=== PATIENT | male | born 1965 | race Caucasian/White ===

== ENCOUNTER → 2022-07-04 | Outpatient (CLI) | payer MEDICAID, SELFPAY ==
--- NOTE | 2022-07-04 | FLU_PTH ---
PATIENT: GABINO ROCHA LOC: [facility] U#:[id number] AGE/SX: 56/M ROOM: RE07/04/[address]: Dr. Lalit John MD : 1965 BED: DIS: 07/04/2022 SPEC #: [id number] RECD: 07/04/22 11:58 STATUS: ELMO ZEESHAN #: [id number] EDEL: 07/04/22 00:[address]: Lalit John DEPT: CYTOLOGY RECD BY: Henna Lamb ENTERED: 07/04/22 13:28 SP TYPE: Fluid OTHR DR: Dr. Ihsan Joyner MD Tissues: A - Thyroid gland, NOS B - Thyroid gland, NOS C - Thyroid gland, NOS D - Thyroid gland, NOS E - Thyroid gland, NOS Procedures: Special Stain Group II Surgery Specimen Level IV Cytospin Fluid HEADER OPERATION: Fine needle aspiration of right mid and right lower thyroid PRE-OP DIAGNOSIS: Abnormal thyroid ultrasound TISSUE SUBMITTED: A - Right mid thyroid nodule fluid, B - Right mid thyroid nodule x8 slides, C - Right lower thyroid nodule fluid, D - Right lower thyroid nodule x12 slides, E - Right superior thyroid nodule x4 slides DIAGNOSIS CYTOLOGY A. 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 Adequate for evaluation. See comment. B. Right mid thyroid nodule, fine needle aspiration (smears): Atypical follicular cells of undetermined significance, [place] Category III. Adequate for evaluation. See comment. C. Right lower thyroid nodule fluid, fine needle aspiration (cytospin and cell block): Negative for malignant cells. See cytology study and comment. D. 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 Adequate for evaluation. See comment. E. Right superior thyroid nodule, fine needle aspiration (smears): Suggestive of benign colloid nodule. See comment. SJ:rg 07/05/2022 COMMENT E. The specimen entirely consists of colloid. Follicular cells are not seen. Correlation with clinical, radiologic findings and appropriate follow up are necessary. The [place] System for thyroid diagnostic categorization was used in the evaluation of this case. Case has been reviewed in consultation with Dr. Ross who concurs with the above diagnosis. IDC:AM CYTOLOGY STUDY Slides are reviewed. C. A few clusters of benign follicular cells are noted. CYTOLOGY GROSS A - Received is 30 ml of cloudy brown fluid labeled with the patient's name and and designated per the requisition as right mid thyroid. Submitted for cytology preparation including cell block. B - Received are 8 smears labeled with the patient's name and designated per the requisition as right mid thyroid. Submitted for staining. C - Received is 25 ml of cloudy brown fluid labeled with the patient's name and and designated per the requisition as right lower thyroid. Submitted for cytology preparation including cell block. D - Received are 12 smears labeled with the patient's name and designated per the requisition as right lower thyroid. Submitted for staining. E - Received are 4 smears labeled with the patient's name and designated per the requisition as right superior thyroid. Submitted for staining. / rg 07/04/2022 TC:5 CPT: 89337 x5, 17446 x2
== END | disposition home or self-care (01) ==
PROVIDERS: PCP Family Medicine; Referring Provider Surgery; Visit Provider Surgery
DX: E04.1 Nontoxic single thyroid nodule (principal)
CPT/HCPCS: 88108; 88305; 88313

== ENCOUNTER 2022-12-06 11:13 | Emergency (ER) | payer MEDICAID, SELFPAY ==
[2022-12-06 11:14] VITALS: BP 133/95; PULSE 114; RESP 18; TEMP 35.7; O2SAT 98; BMI 26.5
--- NOTE | 2022-12-06 11:49 | EX.ED.DYSGE1 ---
HPI History of Present Illness Chief Complaint: Cough Onset/Context/Timing Onset: Month(s) (1) Timing: Continuous Quality: Hoarse Location: Throat Worsened by: Drink water Relieved by: Nothing Narrative Narrative: Patient presents with a cough that has been constant for the past month since he had thyroid surgery. Patient denies any sputum production. Patient denies any fevers or chills. Patient states his cough is worse with drinking any water. Patient states he has had a persistent hoarse voice. Patient states he contacted his surgeon who told him to come to the emergency department for evaluation. Patient states he is taking codeine cough syrup with no improvement. [facility] Medical History (Updated 12/06/22 @ 15:[address] Oscar Gill DO) Diabetes Home Medications hydrocodone-homatropine 5 mg-1.5 mg/5 mL (5 mL) oral syrup (Hycodan) 5 ml PO Q6H PRN cough 10 days #200 mL 12/06/22 [Rx Last Taken Unknown] Allergy/AdvReac Type Severity Reaction Status Date / Time PENICILLIN Allergy Severe HIVES Uncoded 12/06/22 11:15 Surgical History H/O thyroidectomy Social History Smoking Status: Unknown if ever smoked ROS ROS ED Constitutional Constitutional ED: Denies chills or fever(s) Eyes Eyes: Denies blurry vision or change in vision ENT ENT ED: Reports sore throat; Denies rhinorrhea Cardiovascular Cardiovascular: Reports chest pain; Denies palpitations Respiratory/Chest Respiratory/Chest: Reports cough; Denies dyspnea Gastrointestinal Gastrointestinal: Denies nausea or vomiting Genitourinary Genitourinary ED: Denies dysuria or hematuria Musculoskeletal Musculoskeletal: Denies back pain or neck pain Integumentary Denies abscess or rash Neurologic Neurologic: Denies headache(s) or weakness Allergic/Immunologic Allergic/Immunologic ED: Denies mouth swelling or urticaria EXAM Physical Exam Const Vital Signs: 12/06/22 11:14 12/06/22 11:47 Temperature 96.2 F L Temperature Source Temporal Pulse Rate 114 H Respiratory Rate 18 Respiratory Effort Normal Non-Labored Respiratory Depth Normal Respiratory Pattern Normal Blood Pressure 133/95 H Blood Pressure Mean 107 Pulse Ox 98 Oxygen Delivery Method Room Air Positive well nourished and well developed General Appearance ED: well developed and NAD HEENT Reports moist mucous membranes Neck no lymphadenopathy, supple and no JVD Neck Narrative: There is no erythema or warmth. The incision is healing well. There is no edema. Trachea is midline. There is no tenderness noted. Resp normal respiratory effort and clear to auscultation bilaterally Cardio regular rate, regular rhythm and no murmurs GI normal to inspection, nondistended, normoactive bowel sounds and non-tender Palpation: soft Extremity normal to inspection General Extremety ED: Negative for edema or tenderness General Extremity: Negative for edema Neuro oriented x3, CN's II-XII intact bilaterally and no sensory deficits noted Sensorium / Orientation: alert Motor Exam: strength 5/5 throughout Psych mental status grossly normal Skin no rashes or lesions noted MDM MDM MDM Narrative Medical decision making narrative: Differential diagnosis includes postoperative abscess, seroma, infection, mass, and swelling. CBC will be obtained to assess for leukocytosis and anemia. Basic metabolic profile will be obtained to assess for electrolyte abnormality and renal function. CT scan of the soft tissue neck will be obtained to assess for mass, abscess, and swelling. Lab Data Attestation: I reviewed the patient's lab results. Lab results narrative: CBC was reviewed and was within normal limits. Basic metabolic profile was reviewed. BUN was 28 and creatinine was slightly elevated at 1.76. There are no prior labs available for comparison. Labs: Laboratory Results - last 24 hr 12/06/22 12:00 WBC 9.2 RBC 4.85 Hgb 13.8 Hct 43.1 MCV 88.9 MCH 28.5 MCHC 32.0 RDW Std Deviation 43.8 RDW Coeff of Giulia 13.3 Plt Count 268 MPV 9.5 Immature Gran % (Auto) 0.200 Neut % (Auto) 87.1 H Lymph % (Auto) 6.4 L [place] % (Auto) 4.3 Eos % (Auto) 1.6 Baso % (Auto) 0.4 Absolute Neuts (auto) 8.0 H Absolute Lymphs (auto) 0.59 L Nucleated RBC % 0 Differential Comment COMMENT Sodium 144 Potassium 4.2 Chloride 113 H Carbon Dioxide 23.0 Anion Gap 8 BUN 28 H Creatinine 1.76 H Estim Creat Clear Calc 36.62 Est GFR (MDRD) Af Amer 52 L Est GFR (MDRD) Non-Af 43 L BUN/Creatinine Ratio 15.9 Glucose 131 H Calcium 8.8 Radiography Diagnostic Testing: Clinical Impression(s) from Imaging Studies Soft Tissue Neck CT 12/06/22 12:55 IMPRESSION: No acute pathology is noted. Electronically Signed: Alek Garza DO at 13:49 EDT Reading Location ID and State: [facility] / [place] Tel [phone], Service support , CT scan of the soft tissue neck was obtained. There is no acute process noted. There is no evidence of any abscess or mass. This was interpreted by the radiologist and was also independently reviewed by myself. Treatment and Re-Evaluation :: Patient was given IV fluids. Patient was instructed to drink plenty of fluids. Patient was given a prescription for Hycodan cough syrup. Patient was instructed to follow-up with his surgeon in 5 to 7 days. Patient was instructed return if worse in any way. Patient understood and was agreeable with plan. All questions were answered. Discharge Plan Triage Chief Complaint: Cough ED Provider: Oscar Gill Dx/Rx/DC Orders Clinical Impression: Cough, S/P thyroidectomy Instructions: ED Cough Chronic Uncertain Cause Adult Prescriptions: New hydrocodone-homatropine [Hycodan] 5-1.5 mg/5 mL (5 mL) syrup 5 ml PO Q6H PRN (Reason: cough) 10 Days Qty: 200 0RF Primary Care Provider: Ihsan Joyner Referrals: Lalit John MD [Med Staff - Active Staff] - 3-5 Days Ihsan Joyner MD [Primary Care Provider] - 5-7 Days Disposition Disposition: Home, Self Care Discharge Date/Time: 12/06/22 15:11
[2022-12-06 12:11] LABS: Absolute Lymphocyte Count 0.59 X10^3/uL (0.83-4.51); Basophil# 0.04 X10^3/uL; Basophil% 0.4 % (0-1); Eosinophil# 0.15 X10^3/uL; Eosinophils% 1.6 % (0-5); Hematocrit 43.1 % (40-54); Hemoglobin 13.8 g/dL (13.0-16.5); Lymphocyte # 0.59 X10^3/ul (0.83-4.51); Lymphocyte % 6.4 % (19-41); Mean Corpuscular Hgb 28.5 pg (27.0-32.0); Mean Corpuscular Volume 88.9 fL (80-94); Mean Platelet Vol. 9.5 fl (6.2-12.0); Monocyte# 0.39 X10^3/uL; Monocyte% 4.3 % (0-10); NRBC Flagged by Analyzer 0 % (0-5); Neutrophil # 7.96 X10^3/uL (2.7-7.7); Neutrophil % 87.1 % (47-70); POSITIVE DIFFERENTIAL YES; Platelet Count 268 K/mm3 (150-450); RBC Distribution Width CV 13.3 % (11.6-14.6); RBC Distribution Width SD 43.8 fl (35.1-43.9); Red Blood Count 4.85 M/mm3 (4.6-6.2); White Blood Count 9.2 K/mm3 (4.4-11.0)
[2022-12-06 12:24] LABS: Anion Gap 8 (5-15); BUN 28 mg/dL (7-18); BUN/Creat Ratio 15.9 RATIO (10-20); Calcium,Total 8.8 mg/dL (8.5-10.1); Chloride 113 mmol/L (98-107); Creatinine, Serum 1.76 mg/dL (0.70-1.30); EST Glomerular Filtration Rate 43 mL/min (>60); Est Glom Filt Rate - Afr Amer 52 mL/min (>60); Estimated Creatinine Clearance 36.62 ml/min; Glucose 131 mg/dL (74-106); Potassium 4.2 mmol/L (3.5-5.1); Sodium Level 144 mmol/L (136-145)
[2022-12-06 12:39] LABS: Differential Indicated SCAN CRITERIA MET
--- NOTE | 2022-12-06 12:55 | CT_ITS ---
INDICATION: Neck swelling EXAMINATION: CT NECK WITH CONTRAST - CT Soft Tissue Neck W/ Contrast Injection TECHNIQUE: Helically acquired images were obtained of the neck following IV contrast. A radiation dose optimization technique was used for this scan. IV Contrast dosage and agent: RADIATION DOSAGE (If Supplied By Facility): CTDIvol = ( 14.44 ) mGy, DLP = ( 421.97 ) mGycm COMPARISON: FINDINGS: NASOPHARYNX: Unremarkable. SUPRAHYOID NECK: Unremarkable oropharynx, oral cavity, parapharyngeal space, and retropharyngeal space. INFRAHYOID NECK: Unremarkable larynx, hypopharynx, and supraglottis. THYROID: Nonvisualization of the right thyroid lobe. SALIVARY GLANDS: Unremarkable. LYMPH NODES: No cervical or supraclavicular lymphadenopathy. VASCULAR STRUCTURES: Unremarkable. VISUALIZED PORTIONS OF THE ORBITS, PARANASAL SINUSES, MASTOID AIR CELLS AND SKULL BASE: Unremarkable. BONES: Unremarkable. THORACIC INLET: Clear lung apices. CT/Soft Tissue Neck WITH Contrast IMPRESSION: No acute pathology is noted. Electronically Signed: Alek Garza DO at 13:49 EDT Reading Location ID and State: [facility] / [place] Tel [phone], Service support ,
[2022-12-06] MEDS: 0.9% Normal Saline 1,000 ML 1000 ML IV (13:20)
== END 2022-12-06 15:11 | disposition home or self-care (01) ==
PROVIDERS: Emergency Provider Emergency Medicine; PCP Family Medicine; Visit Provider Emergency Medicine
DX: R05.9 Cough, unspecified (principal); E11.9 Type 2 diabetes mellitus without complications; E89.0 Postprocedural hypothyroidism
CPT/HCPCS: 70491; 80048; 85025; 96360; 96361; 99283; J7030; Q9967; A4216